=== PATIENT | female | born 1960 | race Caucasian/White ===

== ENCOUNTER 2022-02-25 10:36 | Emergency (ER) | payer BC, MEDICAID ==
[~2022-02-25] VITALS: Ht 170.2 cm; Wt 122.7 kg
[2022-02-25] MEDS ORDERED: ONDANSETRON 4MG 2ML VIAL IV ONE (12:35)
[2022-02-25] MEDS ORDERED: KETOROLAC 30 MG/ML 1ML VIAL IV ONE (12:35)
[2022-02-25] MEDS ORDERED: NS 1,000 ML IV ONE (12:35)
[2022-02-25 12:51] LABS: RSV AMPLIFICATION NEGATIVE (NEGATIVE)
[2022-02-25] MEDS ORDERED: ACETAMINOPHEN 325 MG TAB PO ONE (13:30)
[2022-02-25] MEDS ORDERED: ONDANSETRON 4MG ORAL DISINTEGRATING TAB PO ONE (13:30)
[2022-02-25 14:07] LABS: BASO % 0.5 % (0.0-1.0); EOS % 0.2 % (0.0-3.0); HEMOGLOBIN 14.2 g/dl (12.0-15.5); LYMPH # 0.7 10^3/uL (1.5-5.0); LYMPH % 17.3 % (24.0-44.0); MEAN CORPUSCULAR HEMOGLOBIN 30.5 pg (27.0-33.0); MEAN CORPUSCULAR HGB CONC 33.8 g/dl (32.0-36.5); MEAN CORPUSCULAR VOLUME 90.1 fl (80.0-96.0); MONO # 0.4 10^3/uL (0.0-0.8); NEUTROPHILS % 71.8 % (36.0-66.0); PLATELET COUNT, AUTOMATED 199 10^3/uL (150-450); RED BLOOD COUNT 4.66 10^6/uL (4.00-5.40); WHITE BLOOD COUNT 4.1 10^3/uL (4.0-10.0)
[2022-02-25 14:43] LABS: BLOOD UREA NITROGEN 10 MG/DL (7-18); CALCIUM LEVEL 8.8 MG/DL (8.8-10.2); CARBON DIOXIDE LEVEL 25 MEQ/L (21-32); CHLORIDE LEVEL 105 MEQ/L (98-107); CREATININE FOR GFR 0.91 MG/DL (0.55-1.30); GLOMERULAR FILTRATION RATE > 60.0 (>45); GLUCOSE, FASTING 92 MG/DL (70-100); SODIUM LEVEL 137 MEQ/L (136-145)
[2022-02-25] MEDS ORDERED: BENZ200C70 PO (14:55)
[2022-02-25] MEDS ORDERED: MUCI600T31 PO (14:55)
[2022-02-25 16:27] VITALS: BP 135/70
== END 2022-02-25 16:29 | disposition home or self-care (01) ==
LOC: M ED 10:36
DX: U07.1 COVID-19 (principal); Z88.1 Allergy status to other antibiotic agents; Z88.2 Allergy status to sulfonamides; Z88.8 Allergy status to other drugs, medicaments and biological substances